=== PATIENT | male | born 1990 | race Caucasian/White ===

== ENCOUNTER 2016-09-10 19:43 | Emergency (ER) | payer OTHER ==
[2016-09-10] MEDS ORDERED: TORAdol 30 mg Injection IM ONE (20:15)
[2016-09-10] MEDS ORDERED: Vistaril 50 MG/ML IM ONE ×2 (20:15→20:18)
[2016-09-10] MEDS ORDERED: TORAdol 30 mg Injection ONE (20:18)
--- NOTE | 2016-09-10 20:19 | ERPHSYRPT ---
- History of Present Illness Time Seen by Provider: 09/10/16 20:04 Source: patient Patient Subjective Stated Complaint: Pt states he injured his right shoulder approx 4.5 hours ago trying to pickling grader 4 semi batteries. Triage Nursing Assessment: Pt alert and oriented x3. skin pink warm and dry. afebrile. guarded movement. pt moaning with movement. no swelling noted to shoulder/arm area. right radial pulse present and regular. sensation intact Physician History: CC: right shoulder injury Hx: 26 y/o healthy male patient of Dr Woo. He lifted batteries this afternoon and hurt the right shoulder. [place] a pop. Severe pain with movement or touch. No prior shoulder injuries. This happened after work and is no work related. Took motrin and APAP at home without relief. Occurred: this afternoon Severity of Pain-Max: severe Severity of Pain-Current: severe Extremities Pain Location: shoulder: right Allergies/Adverse Reactions: No Known Drug Allergies Allergy (Verified 09/10/16 19:52) Hx Tetanus, Diphtheria Vaccination/Date Given: Yes (<1 year) Hx Influenza Vaccination/Date Given: No Hx Pneumococcal Vaccination/Date Given: No Immunizations Up to Date: Yes - Review of Systems Constitutional: No Symptoms Musculoskeletal: Injury (right shoulder), No Back Pain, No Neck Pain Skin: No Rash Neurological: No Focal Weakness, No Headache, No Parasthesia - Past Medical History Pertinent Past Medical History: No Neurological History: No Pertinent History ENT History: No Pertinent History Cardiac History: Angina, Other Respiratory History: No Pertinent History Endocrine Medical History: No Pertinent History Musculoskeletal History: No Pertinent History GI Medical History: No Pertinent History History: No Pertinent History Psycho-Social History: No Pertinent History Male Reproductive Disorders: No Pertinent History Other Medical History: LEAKY VALVE - Past Surgical History Past Surgical History: Yes Other Surgical History: ORAL SURGURY - Social History Smoking Status: Current every day smoker How long have you smoked: 12 Exposure to second hand smoke: Yes Drug Use: none Patient Lives Alone: No - Nursing Vital Signs Nursing Vital Signs: Initial Vital Signs Temperature 97.8 F Temperature Source Oral Pulse Rate 89 Respiratory Rate 18 Blood Pressure 145/76 Pain Intensity 8 - Physical Exam General Appearance: alert Eyes, Ears, Nose, Throat Exam: normal ENT inspection, moist mucous membranes Neck Exam: normal inspection, non-tender, supple Cardiovascular/Respiratory Exam: chest non-tender, normal breath sounds, regular rate/rhythm Abdominal Exam: non-tender, soft Back Exam: normal inspection, No vertebral tenderness Shoulder Exam: limited ROM, soft tissue tenderness, swelling Elbow/Forearm Exam: normal inspection, non-tender Wrist Exam: normal inspection, non-tender Hand Exam: normal inspection, non-tender Neuro/Tendon Exam: normal sensation, normal motor functions Mental Status Exam: alert, oriented x 3, cooperative Skin Exam: warm, dry, No rash SpO2 Interpretation: normal SpO2: 99 Oxygen Delivery: Room Air - Course Nursing assessment & vital signs reviewed: Yes - Radiology Exams right shoulder X-ray Interpretation: Reviewed by me, No Fracture, No Subluxation Ordered Tests: Active Orders 24 hr Category Date Time Status Cold Application STAT Care 09/10/16 20:16 Active Sling Application STAT Care 09/10/16 21:04 Active SHOULDER Stat Exams 09/10/16 20:16 Taken Medication Summary Discontinued Medications Generic Name Dose Route Start Last Admin Trade Name Asifq PRN Reason Stop Dose Admin Hydroxyzine HCl 50 mg 09/10/16 20:15 09/10/16 20:24 Vistaril 50 Mg/Ml IM 09/10/16 20:16 50 mg STAT ONE Administration Hydroxyzine HCl Confirm 09/10/16 20:18 Vistaril 50 Mg/Ml Administered 09/10/16 20:19 Dose 50 mg IM .STK-MED ONE Ketorolac Tromethamine 60 mg 09/10/16 20:15 09/10/16 20:24 Toradol 30 Mg Injection IM 09/10/16 20:16 60 mg STAT ONE Administration Ketorolac Tromethamine Confirm 09/10/16 20:18 Toradol 30 Mg Injection Administered 09/10/16 20:19 Dose 60 mg .ROUTE .STK-MED ONE - Progress Progress Note: 09/10/16 21:04 Advised NSAIDS and sling. He is seeing Dr Guerrero and supposed to start suboxone. INSPECT reviewed. Rx motrin and hydroxyzine. Counseled pt/family regarding: diagnosis, need for follow-up, rad results - Departure Time of Disposition: 21:05 Departure Disposition: Home Clinical Impression: Right shoulder strain Qualifiers: Encounter type: initial encounter Qualified Code(s): S46.911A - Strain of unspecified muscle, fascia and tendon at shoulder and upper arm level, right arm , initial encounter Condition: Stable Critical Care Time: No Referrals: OSLIS WOO MD [Primary Care Provider] - Instructions: Shoulder Sprain Additional Instructions: Sling Ice packs off and on Rx motrin Rx hydroxyzine Prescriptions: Hydroxyzine HCl 1 tab PO Q6H PRN PRN #15 tablet PRN Reason: rash,rest Ibuprofen 600 mg PO Q6H PRN PRN #15 tablet PRN Reason: Pain
[2016-09-10 21:07] VITALS: O2SAT 99
[2016-09-10 21:16] VITALS: BP 136/68; PULSE 90
--- NOTE | 2016-09-11 08:39 | XRAY ---
Indication: Pain and decreased range of motion following lifting injury. Comparison: None 3 views of the right shoulder obtained. No bony, articular, or soft tissue abnormalities.
== END 2016-09-10 21:16 | disposition home or self-care (01) ==
LOC: ED 19:43
DX: S46.911A Strain of unspecified muscle, fascia and tendon at shoulder and upper arm level, right arm, initial encounter (principal); X50.0XXA Overexertion from strenuous movement or load, initial encounter
CPT/HCPCS: 73030; 96372; 99283; J1885; J3410

== ENCOUNTER 2016-12-23 21:03 | Emergency (ER) | payer SELFPAY ==
[2016-12-23] MEDS ORDERED: Rocephin 1000 MG INJ IM ONE (21:34)
[2016-12-23] MEDS ORDERED: TORAdol 30 mg Injection IM ONE (21:35)
[2016-12-23] MEDS ORDERED: NORCO 5/325 MG PO ONE (21:35)
--- NOTE | 2016-12-23 21:41 | ERPHSYRPT ---
- History of Present Illness Time Seen by Provider: 12/23/16 21:30 Source: patient Exam Limitations: no limitations Physician History: FOR THE PAST 2 DAYS PT HAS HAD A LEFT UPPER TOOTHACHE WITH SWELLING OF THE LEFT FACIAL CHEEK AND DIARRHEA; DENIES FEVER, ABDOMINAL PAIN, VOMITING. Allergies/Adverse Reactions: No Known Drug Allergies Allergy (Verified 09/10/16 19:52) Hx Tetanus, Diphtheria Vaccination/Date Given: Yes (<1 year) Hx Influenza Vaccination/Date Given: No Hx Pneumococcal Vaccination/Date Given: No - Review of Systems Constitutional: No Fever Ears, Nose, & Throat: Other (LEFT UPPER TOOTHACHE WITH LEFT FACIAL CHEEK SWELLING) Abdominal/Gastrointestinal: Diarrhea, No Abdominal Pain, No Vomiting All Other Systems: Reviewed and Negative - Past Medical History Pertinent Past Medical History: No Neurological History: No Pertinent History ENT History: No Pertinent History Cardiac History: Angina, Other Respiratory History: No Pertinent History Endocrine Medical History: No Pertinent History Musculoskeletal History: No Pertinent History GI Medical History: No Pertinent History History: No Pertinent History Psycho-Social History: No Pertinent History Male Reproductive Disorders: No Pertinent History Other Medical History: LEAKY VALVE - Past Surgical History Past Surgical History: Yes Other Surgical History: ORAL SURGURY - Social History Smoking Status: Current every day smoker How long have you smoked: 12 Exposure to second hand smoke: Yes Drug Use: none Patient Lives Alone: No - Nursing Vital Signs Nursing Vital Signs: Initial Vital Signs Temperature 99.3 F Temperature Source Oral Pulse Rate 100 Respiratory Rate 16 Blood Pressure [Right Arm] 139/70 Pain Intensity 10 - Physical Exam General Appearance: alert Eye Exam: bilateral eye: PERRL, EOMI Ear Exam: bilateral ear: TM normal Nasal Exam: normal inspection Throat Exam: pharynx normal, maxillary swelling (MILD EDEMA, ERYTHEMA AND TENDERNESS OF THE LEFT MAXILLARY GUM), moist mucus membranes Neck Exam: normal inspection Cardiovascular/Respiratory Exam: normal breath sounds, heart sounds normal Abdominal Exam: soft (B.S. NORMAL) Neurologic Exam: alert, cooperative Skin Exam: warm, dry SpO2 Interpretation: normal SpO2: 100 Oxygen Delivery: Room Air - Course Nursing assessment & vital signs reviewed: Yes Ordered Tests: Medication Summary Discontinued Medications Generic Name Dose Route Start Last Admin Trade Name Freq PRN Reason Stop Dose Admin Acetaminophen/Hydrocodone Bitart 2 tab 12/23/16 21:35 [place] 5/325 Mg PO 12/23/16 21:36 SENT HOME W/ PATIENT ONE Ceftriaxone Sodium 1,000 mg 12/23/16 21:34 Rocephin 1000 Mg Inj IM 12/23/16 21:35 STAT ONE Ketorolac Tromethamine 60 mg 12/23/16 21:35 Toradol 30 Mg Injection IM 12/23/16 21:36 STAT ONE - Departure Time of Disposition: 21:43 Departure Disposition: Home Clinical Impression: TOOTH ABSCESS, DIARRHEA Condition: Fair Critical Care Time: No Instructions: Tooth Abscess, Diarrhea and Traveler's Diarrhea -- Adult Additional Instructions: FOLLOW UP WITH PRIVATE DENTIST/DOCTOR TOMORROW. Prescriptions: Naproxen [Naprosyn] 500 mg PO Q12H PRN PRN #20 tablet PRN Reason: Pain Cephalexin Monohydrate [Keflex] 500 mg PO TID #30 capsule
[2016-12-23] MEDS ORDERED: Rocephin 1000 MG INJ ONE (21:52)
[2016-12-23] MEDS ORDERED: TORAdol 30 mg Injection ONE ×2 (21:52→22:04)
[2016-12-23] MEDS ORDERED: NORCO 5/325 MG ONE (21:52)
[2016-12-23] MEDS ORDERED: XYLOCAINE 1% HCL 20 ML MDV ONE (21:55)
[2016-12-23 22:18] VITALS: BP 137/68; PULSE 92; O2SAT 98
== END 2016-12-23 22:18 | disposition home or self-care (01) ==
LOC: ED 21:03
DX: K04.7 Periapical abscess without sinus (principal); R19.7 Diarrhea, unspecified
CPT/HCPCS: 96372; 96374; 96375; 99284; J0696; J1885; A9270-GY

== ENCOUNTER 2017-04-12 20:05 | Emergency (ER) | payer OTHER ==
[2017-04-12 20:18] VITALS: BP 120/70; PULSE 62; O2SAT 99
[2017-04-12] MEDS ORDERED: NORCO 5/325 MG PO ONE (20:23)
[2017-04-12] MEDS ORDERED: NORCO 5/325 MG ONE (20:28)
--- NOTE | 2017-04-12 20:28 | ERPHSYRPT ---
- History of Present Illness Time Seen by Provider: 04/12/17 20:18 Source: patient Exam Limitations: no limitations Patient Subjective Stated Complaint: pt lifted a tree trunk 2 days ago and felt his right shoulder "pop" and since then he has pain and limited movement -he stayed home from work today to rest but it is still painful Triage Nursing Assessment: pt is awake and alert and able to answer questions - holding his arm against his side Physician History: YESTERDAY AT HOME PT LIFTED A TREE TRUNK AT HOME WITH RESULTANT RIGHT SHOULDER PAIN; DENIES PREVIOUS INJURY TO THE RIGHT SHOULDER; STATES HE CAN FEEL ALL DIGITS OF THE RIGHT HAND. Allergies/Adverse Reactions: No Known Drug Allergies Allergy (Verified 04/12/17 20:25) Hx Tetanus, Diphtheria Vaccination/Date Given: Yes (<1 year) Hx Influenza Vaccination/Date Given: No Hx Pneumococcal Vaccination/Date Given: No - Review of Systems Musculoskeletal: Joint Pain (RIGHT SHOULDER PAIN) - Past Medical History Pertinent Past Medical History: No Neurological History: No Pertinent History ENT History: No Pertinent History Cardiac History: Angina, Other Respiratory History: No Pertinent History Endocrine Medical History: No Pertinent History Musculoskeletal History: No Pertinent History GI Medical History: No Pertinent History History: No Pertinent History Psycho-Social History: No Pertinent History Male Reproductive Disorders: No Pertinent History Other Medical History: LEAKY VALVE - Past Surgical History Past Surgical History: Yes Other Surgical History: ORAL SURGURY - Social History Smoking Status: Current some day smoker How long have you smoked: 12 Exposure to second hand smoke: Yes Drug Use: none Patient Lives Alone: No - Nursing Vital Signs Nursing Vital Signs: Initial Vital Signs Temperature 98.3 F 04/12/17 20:16 Pulse Rate 62 04/12/17 20:16 Respiratory Rate 16 04/12/17 20:16 Blood Pressure 120/70 04/12/17 20:16 O2 Sat by Pulse Oximetry 99 04/12/17 20:16 Pain Scale Pain Intensity 6 - Physical Exam General Appearance: alert Shoulder Exam: limited ROM, soft tissue tenderness Elbow/Forearm Exam: no evidence of injury, normal ROM Wrist Exam: no evidence of injury, normal ROM Hand Exam: no evidence of injury, normal ROM Neuro/Tendon Exam: normal sensation Mental Status Exam: alert, cooperative Skin Exam: warm, dry SpO2 Interpretation: normal SpO2: 99 Oxygen Delivery: Room Air - Course Nursing assessment & vital signs reviewed: Yes - Radiology Exams Right Shoulder X-ray Interpretation: Interpreted by me, No Fracture Ordered Tests: Active Orders 24 hr Category Date Time Status Sling Application STAT Care 04/12/17 20:23 Active SHOULDER Stat Exams 04/12/17 20:23 Taken Medication Summary Discontinued Medications Generic Name Dose Route Start Last Admin Trade Name Freq PRN Reason Stop Dose Admin Hydrocodone Bitart/Acetaminophen 2 tab 04/12/17 20:23 04/12/17 20:29 [place] 5/325 Mg PO 04/12/17 20:24 2 tab STAT ONE Administration Hydrocodone Bitart/Acetaminophen Confirm 04/12/17 20:28 [place] 5/325 Mg Administered 04/12/17 20:29 Dose 2 tab .ROUTE .[facility] ONE - Departure Time of Disposition: 20:47 Departure Disposition: Home Clinical Impression: RIGHT SHOULDER SPRAIN Condition: Stable Critical Care Time: No Instructions: Shoulder Sprain Additional Instructions: FOLLOW UP WITH PRIVATE DOCTOR TOMORROW. WEAR RIGHT ARM SLING FOR COMFORT. DO NOT USE RIGHT ARM FOR 24 HOURS. Prescriptions: Naproxen [Naprosyn] 500 mg PO Q12H PRN PRN #20 tablet PRN Reason: Pain
--- NOTE | 2017-04-13 10:27 | XRAY ---
Exam: 3 views of the right shoulder from 04/12/2017. Comparison: 3 views of the right shoulder from 09/10/2016. Indication: Pain after lifting wood. Findings: AP internal rotation, AP external rotation, and Y views of the right shoulder were obtained. I see no acute fracture or dislocation of the right shoulder. However, on the AP external rotation view, there is some mild elevation of the lateral end of the right clavicle with respect to the acromion. Furthermore, the right acromioclavicular joint space is mildly prominent measuring 7-8 mm across. This is consistent with a right acromioclavicular joint subluxation injury. Similar, but less pronounced findings were seen on 09/10/2016. The exact age of this finding is therefore unknown. The coracoclavicular distance does not appear increased. The right scapula appears unremarkable. Impression: 1. I believe there is a right acromioclavicular joint subluxation injury. However, I cannot ascertain whether this is acute or older. Similar, but less pronounced findings were seen on 09/10/2016 in retrospect. 2. No acute fracture or dislocation of the right shoulder is seen. Note: I personally called this report to the emergency Department at 10:10 AM on 04/13/2017.
== END 2017-04-12 20:55 | disposition home or self-care (01) ==
LOC: ED 20:05
DX: S43.401A Unspecified sprain of right shoulder joint, initial encounter (principal); X50.0XXA Overexertion from strenuous movement or load, initial encounter; Y93.H9 Activity, other involving exterior property and land maintenance, building and construction
CPT/HCPCS: 73030; 99283; 99284; A9270-GY

== ENCOUNTER 2017-04-19 17:11 | Emergency (ER) | payer OTHER ==
[2017-04-19 17:35] VITALS: O2SAT 100
[2017-04-19] MEDS ORDERED: Vistaril 50 MG/ML IM ONE ×2 (17:58→18:01)
[2017-04-19] MEDS ORDERED: TORAdol 30 mg Injection IM ONE (17:58)
[2017-04-19] MEDS ORDERED: TORAdol 30 mg Injection ONE (18:01)
--- NOTE | 2017-04-19 18:04 | ERPHSYRPT ---
- History of Present Illness Time Seen by Provider: 04/19/17 17:48 Source: patient Patient Subjective Stated Complaint: PT STATES HE WAS SEEN IN ER 3 DAYS AGO AND FOLLOWED UP WITH FAMILY DR TODAY AND GIVEN AN APPOINTMENT TO SEE AN ORTHOPEDIC DR THIS WEEK ON TUESDAY. PT STATES HE IS STILL HAVING PAIN. Triage Nursing Assessment: PT PINK, WARM, DRY. PT AMBULATED INTO ER WITHOUT DIFFICULTY. NO DEFORMITY NOTED. Physician History: CC: right shoulder pain Hx: 26 y/o patient of Dr Woo. He was in ER right right scapular pain a few days ago. Right shoulder xray showed ?AC sublux but otherwise neg. His pain is over the right shoulder blade. No cough, discreet injury, or shortness of breath. He used sling for a couple of days. He ran out of naproxen. He has [facility] bone and joint appt in 2 days. No N/T/W. Allergies/Adverse Reactions: No Known Drug Allergies Allergy (Verified 04/19/17 17:34) Hx Tetanus, Diphtheria Vaccination/Date Given: Yes (UP TO DATE) Hx Influenza Vaccination/Date Given: Yes Hx Pneumococcal Vaccination/Date Given: No Immunizations Up to Date: Yes - Review of Systems Constitutional: No Fever, No Chills Respiratory: No Dyspnea Cardiac: No Chest Pain Abdominal/Gastrointestinal: No Abdominal Pain Musculoskeletal: Back Pain (right scapula area) Neurological: No Focal Weakness, No Parasthesia - Past Medical History Pertinent Past Medical History: Yes Neurological History: No Pertinent History ENT History: No Pertinent History Cardiac History: Angina, Other Respiratory History: No Pertinent History Endocrine Medical History: No Pertinent History Musculoskeletal History: No Pertinent History GI Medical History: No Pertinent History History: No Pertinent History Psycho-Social History: No Pertinent History Male Reproductive Disorders: No Pertinent History Other Medical History: LEAKY VALVE - Past Surgical History Past Surgical History: Yes Other Surgical History: ORAL SURGURY - Social History Smoking Status: Current every day smoker How long have you smoked: 10 Exposure to second hand smoke: Yes Drug Use: none Patient Lives Alone: No - Nursing Vital Signs Nursing Vital Signs: Initial Vital Signs Temperature 98.8 F 04/19/17 17:15 Pulse Rate 92 H 04/19/17 17:15 Respiratory Rate 18 04/19/17 17:15 Blood Pressure 133/78 04/19/17 17:15 O2 Sat by Pulse Oximetry 100 04/19/17 17:15 Pain Scale Pain Intensity 8 - Physical Exam General Appearance: alert Eyes, Ears, Nose, Throat Exam: moist mucous membranes Neck Exam: non-tender, supple Cardiovascular/Respiratory Exam: normal breath sounds, regular rate/rhythm Back Exam: normal inspection, other (tender over right scapula muscles area, no redness. ROM intact. No AC tenderness. No shoulder joint tenderness.), No vertebral tenderness Elbow/Forearm Exam: normal inspection, non-tender Wrist Exam: normal inspection, non-tender Hand Exam: normal inspection, non-tender Neuro/Tendon Exam: normal sensation, normal motor functions Mental Status Exam: alert, oriented x 3, cooperative Skin Exam: warm, dry SpO2 Interpretation: normal SpO2: 100 Oxygen Delivery: Room Air - Course Nursing assessment & vital signs reviewed: Yes - Progress Progress Note: 04/19/17 18:02 Reviewed xray from prior. He has ortho appt. Will use sling, motrin. IM toradol and vistaril given here. Counseled pt/family regarding: diagnosis, need for follow-up - Departure Time of Disposition: 18:02 Departure Disposition: Home Clinical Impression: Pectoralis muscle strain Qualifiers: Encounter type: subsequent encounter Qualified Code(s): S29.011D - Strain of muscle and tendon of front wall of thorax, subsequent encounter Condition: Stable Critical Care Time: No Referrals: SOLIS WOO MD [Primary Care Provider] - Instructions: Shoulder Sprain Additional Instructions: SPRAINS/STRAINS/CONTUSIONS 1. Rest the affected area as much as possible for the next few days. 2. Apply ice to the affected area for 20-30 minutes at a time, several times a day. 3. If you receive an elastic wrap, wear it only while awake for comfort and support. Re-wrap the elastic wrap if it feels too tight or too loose. 4. If swelling is present, elevate the affected part above the level of the heart for at least 2 to 3 days. 5. Use splints, slings, or crutches as instructed. 6. Watch for severe swelling, coldness, numbness, and discoloration of the fingers and toes. See your family physician or return to the emergency department if any of these are noted. Sling for comfort. See orthopedist in 2 days as scheduled. No driving tonite or while taking hydroxyzine. Rx hydroxyzine. Rx motrin. Prescriptions: Hydroxyzine HCl 1 tab PO Q6H PRN PRN #15 tablet PRN Reason: rash,rest Ibuprofen 600 mg PO Q6H PRN PRN #15 tablet PRN Reason: Pain
[2017-04-19 18:21] VITALS: BP 128/60; PULSE 70
== END 2017-04-19 18:21 | disposition home or self-care (01) ==
LOC: ED 17:11
DX: S29.011D Strain of muscle and tendon of front wall of thorax, subsequent encounter (principal)
CPT/HCPCS: 96372; 99282; 99284; J1885; J3410

== ENCOUNTER 2020-02-11 14:08 | Emergency (ER) | payer OTHER ==
[2020-02-11] MEDS ORDERED: XYLOCAINE 1% HCL 20 ML MDV IJ ONE (14:09)
[2020-02-11 14:35] VITALS: O2SAT 99
[2020-02-11] MEDS ORDERED: Rocephin 1000 MG INJ IM ONE (15:11)
[2020-02-11] MEDS ORDERED: TORAdol 30 mg Injection IM ONE (15:12)
--- NOTE | 2020-02-11 15:18 | ERPHSYRPT ---
- History of Present Illness Time Seen by Provider: 02/11/20 14:48 Source: patient Exam Limitations: no limitations Patient Subjective Stated Complaint: pt reports approx 3 days ago he noticed some left sided facial tenderness and swelling. states the pain and swelling have increased since that time. pt reports a foul taste in his mouth as well. Triage Nursing Assessment: pt is aox3, pupils perrl, afebrile, resps easy and non labored, radial pulses strong and equal, cap refill < 3 seconds, pt skin pink warm dry. swelling noted to the left face, swelling begins below the left eye and continues down to the left neck. skin is intact. warm to touch. pt with no upper teeth present, on the right upper side the teeth are surgically absent , on the left upper side the teeth are present at the level of the gums. lower teeth are present to both sides with dental carries noted throughout. some lower teeth are also absent. Physician History: 29 yo wm w 3 day h/o dental pain/L facial edema. Pt states pain severe. He has not seen a dentist for this condition. Pt denies fever/trauma/cough/coryza. Timing/Duration: days (3 days) Severity: moderate ENT Location: dental Prearrival Treatment: no prearrival treatment Modifying Factors: Improves With: nothing Associated Symptoms: denies symptoms Allergies/Adverse Reactions: No Known Drug Allergies Allergy (Verified 02/11/20 14:34) Hx Tetanus, Diphtheria Vaccination/Date Given: Yes Hx Influenza Vaccination/Date Given: No Hx Pneumococcal Vaccination/Date Given: No Immunizations Up to Date: Yes Travel Risk - International Travel Have you traveled outside of the country in past 3 weeks: No (N) Have you or anyone close to you been diagnosed with or: No Do your reside in a community with a known COVID-19 case?: Yes If Yes where:: [place] - Coronavirus Screening Has patient experienced Coronavirus symptoms: No - Review of Systems Constitutional: No Symptoms Eyes: No Symptoms Ears, Nose, & Throat: Mouth Pain Respiratory: No Symptoms Cardiac: No Symptoms Abdominal/Gastrointestinal: No Symptoms Genitourinary Symptoms: No Symptoms Musculoskeletal: No Symptoms Skin: No Symptoms Neurological: No Symptoms Psychological: No Symptoms Endocrine: No Symptoms Hematologic/Lymphatic: No Symptoms Immunological/Allergic: No Symptoms - Past Medical History Pertinent Past Medical History: Yes Neurological History: No Pertinent History ENT History: No Pertinent History Cardiac History: Angina, Other Respiratory History: No Pertinent History Endocrine Medical History: No Pertinent History Musculoskeletal History: No Pertinent History GI Medical History: No Pertinent History History: No Pertinent History Psycho-Social History: No Pertinent History Male Reproductive Disorders: No Pertinent History Other Medical History: LEAKY VALVE - Past Surgical History Past Surgical History: Yes Other Surgical History: ORAL SURGERY - 6 TEETH REMOVED - Social History Smoking Status: Current every day smoker How long have you smoked: 10 Exposure to second hand smoke: Yes Drug Use: none Patient Lives Alone: Yes Significant Family History: no pertinent family hx - Nursing Vital Signs Nursing Vital Signs: Initial Vital Signs Temperature 98.5 F 02/11/20 14:14 Pulse Rate 98 H 02/11/20 14:14 Respiratory Rate 02/11/20 14:14 Blood Pressure 124/78 02/11/20 14:14 O2 Sat by Pulse Oximetry 99 02/11/20 14:14 Pain Scale Pain Intensity 10 - Physical Exam General Appearance: no apparent distress Eye Exam: bilateral eye: normal inspection, PERRL, EOMI Ear Exam: bilateral ear: auricle normal, canal normal, TM normal Nasal Exam: normal inspection Throat Exam: pharynx normal, mandibular swelling (Multiple missing teeth/ Remaining teeth w advanced erosion to gums) Neck Exam: normal inspection, non-tender Cardiovascular/Respiratory Exam: chest non-tender Abdominal Exam: non-tender Neurologic Exam: alert, oriented x 3, cooperative, piccoloist II-XII nml as tested, normal mood/affect Skin Exam: normal color, warm, dry SpO2 Interpretation: normal SpO2: 99 O2 Delivery: Room Air - Course Nursing assessment & vital signs reviewed: Yes Ordered Tests: Medication Summary Discontinued Medications Generic Name Dose Route Start Last Admin Trade Name Freq PRN Reason Stop Dose Admin Ceftriaxone Sodium 1,000 mg 02/11/20 15:11 02/11/20 15:49 Rocephin 1000 Mg Inj IM 02/11/20 15:12 1,000 mg STAT ONE Administration Ceftriaxone Sodium Confirm 02/11/20 15:43 Rocephin 1000 Mg Inj Administered 02/11/20 15:44 Dose 1,000 mg .ROUTE .STK-MED ONE Ketorolac Tromethamine 60 mg 02/11/20 15:12 02/11/20 15:49 Toradol 30 Mg Injection IM 02/11/20 15:13 60 mg STAT ONE Administration Ketorolac Tromethamine Confirm 02/11/20 15:43 Toradol 30 Mg Injection Administered 02/11/20 15:44 Dose 60 mg .ROUTE .STK-MED ONE - Progress Progress: improved Progress Note: 02/11/20 15:18 1gm IM rocephin/60mg IM toradol Counseled pt/family regarding: diagnosis, need for follow-up - Departure Departure Disposition: Home Clinical Impression: Dental decay, Tooth abscess Condition: Stable Critical Care Time: No Referrals: SOLIS WOO MD [Primary Care Provider] - Instructions: Tooth Abscess (DC), Tooth Decay, Adult (DC) Additional Instructions: Meds as prescribed Dentist TYRESE Prescriptions: Ketorolac Tromethamine [Toradol] 10 mg PO TID PRN #10 tablet PRN Reason: Pain Penicillin V Potassium 500 mg PO TID #21 tablet
[2020-02-11] MEDS ORDERED: Rocephin 1000 MG INJ ONE (15:43)
[2020-02-11] MEDS ORDERED: TORAdol 30 mg Injection ONE (15:43)
[2020-02-11 16:18] VITALS: BP 131/72; PULSE 102
== END 2020-02-11 16:18 | disposition home or self-care (01) ==
LOC: ED 14:08
DX: K02.9 Dental caries, unspecified (principal); K04.7 Periapical abscess without sinus
CPT/HCPCS: 96372; 99284; J0696; J1885